=== PATIENT | male | born 2005 | race African-American/Black ===

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

== ENCOUNTER 2024-06-05 09:18 | Emergency (ER) | payer MEDICAID ==
[~2024-06-05] VITALS: Ht 175.3 cm; Wt 103.4 kg
[2024-06-05 09:21] VITALS: O2SAT 98
[2024-06-05 10:03] VITALS: TEMP 98.4; O2SAT 99
[2024-06-05] MEDS ORDERED: IBUP-2028 MT (12:38)
[2024-06-05 12:49] VITALS: BP 144/80; PULSE 96; RESP 16
[2024-06-05] MEDS: IBUPROFEN 400MG TABLET PO ONE (12:49)
== END 2024-06-05 13:36 | disposition home or self-care (01) ==
LOC: ER 09:18
DX: M76.61 Achilles tendinitis, right leg (principal); W19.XXXA Unspecified fall, initial encounter; Y93.89 Activity, other specified; Y92.89 Other specified places as the place of occurrence of the external cause; Y99.8 Other external cause status
CPT/HCPCS: 99282